=== PATIENT | female | born 1955 | race Caucasian/White ===

== ENCOUNTER 2017-06-19 18:30 | Inpatient (IN) ==
[2017-06-19] MEDS ORDERED: PANTOPRAZOLE 40 MG VIAL IV STA (18:52)
[2017-06-19] MEDS ORDERED: HYDROmorphone 2 MG/1 ML VIAL IV STA (18:52)
[2017-06-19] MEDS ORDERED: ALUM/MAG/SIMETH/LIDO VISC 1:1 30 ML BOTTLE PO STA (18:52)
[2017-06-19] MEDS ORDERED: ONDANSETRON 4 MG/2 ML VIAL IV STA (18:52)
[2017-06-19] MEDS ORDERED: FUROSEMIDE 40 MG/4 ML VIAL IV STA (18:56)
--- NOTE | 2017-06-19 18:57 | Emergency Department Note ---
Raheel Flor Brittany, am scribing for, and in the presence of, Vincenzo Wilson MD 18:52. Steve Flor Charles R, MD, personally performed the services described in this documentation, ascribed by Malini Pickering in my presence, and it is both accurate and complete 856 . Arrival - Arrival Chief Complaint: Abdominal / Flank Pain Stated Complaint: abdominal pain ED Nursing Triage Note: C/o RUQ pain and nausea-onset yesterday. Last BM this morning. Mode of Arrival: Ambulatory Limitations: No Limitations Source: Patient, RN Notes Reviewed - History of Present Illness HPI Narrative: Patient is a 62 y/o white female presenting to the ED with c/o RUQ and mid- epigastric abdominal pain that radiates into the mid-back that began yesterday. Pain is better upon sitting up and leaning forward. Patient reports having some associated diaphoresis and nausea, but denies having any vomiting, diarrhea, or constipation. Last normal bowel movement was this morning. Patient states that she has had a dry, hacking cough. Patient states that she does have a history of IDDM that is well-controlled. Patient reports that she was seen here a few weeks ago s/p being pinned between a lawnmower and tree with c/o chest wall pain and thoracic spine pain. Patient did have radiography studies performed that showed multiple contusions. On monitor patient is hypertensive with a blood pressure of 211/95 mmHg, patient states that she has taken her antihypertensives today. Denies history of Diverticulitis. She denies having any further complaints. PMHx HTN, IDDM, Dyslipidemia, Asthma, Kidney Stones, Recurrent UTI, GI Bleed, Polyps, Cardiac Catheterization, CABG, Tonsillectomy/ Adenoidectomy, Appendectomy, Colonoscopy, Hysterectomy, Ceasarean Section. Onset (ago): day(s) (2) Consistency: constant Date of Last Menstrual Period: hysterectomy Allergies/Adverse Reactions: Allergies Allergy/AdvReac Type Severity Reaction Status Date / Time Sulfa (Sulfonamide Allergy Mild RASH Verified 07/12/15 12:28 Antibiotics) Home Medications: Home Medications Medication Instructions Recorded Confirmed Type Fenofibrate [Tricor] 145 mg PO DAILY 07/12/15 06/19/17 History Rosuvastatin Calcium [Crestor] 40 mg PO BEDTIME 07/12/15 06/19/17 History metFORMIN XR [Glucophage Xr] 500 mg PO 0700,1200 07/12/15 06/19/17 History Atenolol 100 mg PO BEDTIME 07/19/15 06/19/17 History NIFEdipine XL TAB [Procardia Xl] 60 mg PO BEDTIME 07/19/15 06/19/17 History Aspirin [Ecotrin] 325 mg PO DAILY 02/10/16 06/19/17 History Clorazepate [Tranxene] 7.5 mg PO DIRECTED PRN 02/10/16 06/19/17 History Insulin NPH Hum/Reg Insulin Hm 75 units SUBCUT BEDTIME 02/10/16 06/19/17 History [NovoLIN 70/30] Pantoprazole Tab [Protonix Tab] 40 mg PO DAILY 02/10/16 06/19/17 History metFORMIN XR [Glucophage Xr] 1,000 mg PO BEDTIME 03/20/16 06/19/17 History Insulin NPH Hum/Reg Insulin Hm 100 unit SUBCUT AC BREAKFAST 05/15/17 06/19/17 History [NovoLIN 70/30] Levothyroxine Tab [Synthroid Tab] 88 mcg PO DIRECTED 05/15/17 06/19/17 History Nitroglycerin Sl Tab [Nitrostat] 0.4 mg SL Q5M PRN 05/15/17 06/19/17 History Chlorthalidone [Hygroton] 25 mg PO DAILY 06/19/17 06/19/17 History Cilostazol [Pletal] 100 mg PO BID 06/19/17 06/19/17 History Isosorbide Mononitrate [Imdur] 60 mg PO DAILY 06/19/17 06/19/17 History Levothyroxine Tab [Synthroid Tab] 100 mcg PO DIRECTED 06/19/17 06/19/17 History predniSONE TAB [PredniSONE] 10 mg PO QOTHER DAY 06/19/17 06/19/17 History Review of System - Review of System 12 point system: reviewed and no additional remarkable complaints except as stated - Review of System Constitutional: Present: diaphoresis. Absent: chills, fever Respiratory: Absent: respiratory distress Cardiovascular: Absent: chest pain Gastrointestinal: Present: abdominal pain, nausea. Absent: vomiting, diarrhea, constipation Genitourinary female: Absent: dysuria, frequency, urgency Musculoskeletal: Present: back pain. Absent: arm pain, leg pain, neck pain Skin: Absent: rash Neurological: Absent: headache Psychiatric: Absent: anxiety, depression Medical,Surgical,& Family Hx - Medical History Cardio: History of: Hypertension Comment Only: Cardiovascular Problems (TRIPLE BYPASS 2010) Neurology: History of: Migraine No history of: Seizures HEENT: History of: Ear Problem (BILATERAL HEARING AIDS), Eye Problem (READING GLASSES) Endocrine: History of: Diabetes Mellitus (IDDM), Dyslipidemia Respiratory: History of: Asthma Genitourinary: History of: Kidney Stones (20 YRS AGO), Recurring Urinary Tract Infections (ON ANTIBIOTIC 2 WEEKS AGO) Gastrointestinal: History of: Gastrointestinal Bleed (JUL 2014), Polyps (REMOVED ) Hematology: History of: Bleeding Problems (JUL 2014 AFTER POLYP REMOVED DURING C SCOPE) Other: History of: Skin Problems (ULCER RIGHT FOOT), Miscellaneous Medical Problems (SINUS SURGERY) - Surgical History Cardiac Surgeries: Sugical HX of: Cardiac Catheterization, Cardiac Surgery (CABG ) HEENT Surgeries: Surgical HX of: Tonsilectomy & Adenoidectomy Abdominal Surgeries: Surgical HX of: Abdominal Surgery, Appendectomy, Colonoscopy Reproductive Surgeries: Surgical HX of;: Breast Surgery (LEFT BREAST BX), Section (X1), Gynecologic Surgery, Hysterectomy Orthopedic Surgeries: Surgical HX of;: Orthopedic Surgery (LEFT ROTATOR CUFF SX , BILATERAL CARPAL TUNEL SX) - Family History Family History: Reports;: Family Cancer (MOTHER), Family Diabetes (FATHER), Family Heart Disease (FATHER), Family Hypertension (FATHER), Family Stroke ( MOTHER) - Social History Smoking Status: Never smoker Frequency of Alcohol Use: None Type of Drug Use: None Exam Vital Signs: Vital Signs Temperature 96.0 F L 06/19/17 18:52 Pulse Rate 91 H 06/19/17 19:41 Respiratory Rate 12 06/19/17 19:41 Blood Pressure 150/90 06/19/17 19:41 O2 Sat by Pulse Oximetry 98 06/19/17 19:46 - General General appearance: alert, in no apparent distress - Head Head exam: Present: atraumatic, normocephalic - Eye Eye exam: Present: PERRL, EOMI - ENT ENT exam: Present: normal exam, normal oropharynx - Neck Neck exam: Present: normal inspection, full ROM, trachea midline - Chest Chest inspection: Present: normal inspection, symmetric chest wall rise - Respiratory Respiratory exam: Present: rales (rales to bilateral lung bases). Absent: normal lung sounds bilaterally - Cardiovascular Cardiovascular exam: Present: normal rhythm, tachycardia, normal heart sounds. Absent: regular rate - Abdominal Exam Abdominal exam: Present: soft, tenderness (RUQ, mid-epigastric, epigastric), normal bowel sounds - Extremities Exam Extremities exam: Present: pedal edema (+2 edema to bilateral lower extremities) - Back Exam Back exam: Present: normal inspection - Neurological Exam Neurological exam: Present: alert, oriented X3, CN II-XII intact. Absent: motor sensory deficit - Psychiatric Psychiatric exam: Present: normal affect, normal mood - Skin Skin exam: Present: warm, dry, intact, normal color Course - Consultations Consultation #1: Hospitalist will admit patient Time: 19:59 Results - Labs CBC & BMP: 06/19/17 18:49 06/19/17 18:49 Lab Results: I have reviewed the patients labs Labs: Laboratory Tests 06/19/17 06/19/17 18:49 18:49 WBC 10.2 RBC 4.60 Hgb 12.8 Hct 38.1 MCV 82.8 L Plt Count 196 Baso % (Auto) 1.0 H Lymph # (Auto) 4.3 H [place] # (Auto) 1.0 H Sodium 138 Potassium 3.7 Chloride 104 Carbon Dioxide 26 BUN 17 Creatinine 1.00 Glucose 104 Lactic Acid 1.2 Magnesium 1.7 L AST 39 H Alkaline Phosphatase 43 L Troponin I 0.109 H Laboratory Tests 06/19/17 19:41 Urine Color Yellow Urine Appearance Clear Urine pH 7.0 Ur Specific [place] 1.006 Urine Protein Negative Urine Glucose (UA) Negative Urine Ketones Negative Urine Blood Negative Urine Nitrate Negative Urine Bilirubin Negative Urine Urobilinogen < 2.0 H Urine Leukocytes Negative Urine RBC <1 Urine WBC 2 Ur Squamous Epith Cells Occasional Urine Bacteria Occasional Urine Mucus Occasional - Diagnostic Findings Procedure: Abdominal x-ray: report reviewed by me (Cardiomegaly and hepatosplenomegaly.), Chest x-ray: report reviewed by me (Cardiomegaly. No acute abnormality.), CT Abdomen and Pelvis: report reviewed by me (1. Increasing pericardial effusion. 2. Hepatomegaly. Fatty liver. 3. Splenomegaly. 4. No evidence of urinary tract calculi. Hypodensities within the kidneys could be further evaluated with ultrasound. 5. Constipation.) Critical Care Time Critical Care Time: Yes Total Critical Care Time: 60 Disposition Clinical Impression: Abdominal pain, Uncontrolled blood pressure, Pericardial effusion, Epigastric pain, Elevated troponin Case discussed with: patient, patient's family Disposition: Still a Patient Condition: Stable Time of Disposition: 20:01
[2017-06-19 19:00] LABS: Basophils # 0.1 10*3/uL (0.0-0.2); Eosinophils # 0.2 10*3/uL (0.0-0.87); Eosinophils % 2.3 % (0.00-10.9); Hematocrit 38.1 VOL% (35.7-47.0); Hemoglobin 12.8 GM/DL (12.0-16.0); Immature Granulocytes % 0.5 %; Immature Granulocytes Absolute 0.05 #; Lymphocytes # 4.3 10*3/uL (1.4-4.0); Lymphocytes % 41.9 % (21.3-54.2); Mean Corpuscular HGB Conc 33.6 GM/DL (32-36); Mean Corpuscular Hemoglobin 28 PG (27-34); Mean Corpuscular Volume 82.8 FL (87-102); Monocytes % 9.7 % (1.7-12.7); Neutrophils # 4.5 10*3/uL (1.4-7.4); Neutrophils % 44.6 % (38.7-73.9); Platelet Count 196 T/CUMM (130-400); Red Cell Distribution Width 14.1 % (9.3-17.3); White Blood Count 10.2 T/CUMM (4-12)
[2017-06-19] MEDS ORDERED: PANTOPRAZOLE 40 MG VIAL IV ONE (19:04)
[2017-06-19] MEDS ORDERED: FUROSEMIDE 40 MG/4 ML VIAL ONE (19:05)
[2017-06-19] MEDS ORDERED: ONDANSETRON 4 MG/2 ML VIAL ONE (19:05)
[2017-06-19] MEDS ORDERED: ALUM/MAG/SIMETH/LIDO VISC 1:1 30 ML BOTTLE PO ONE (19:06)
[2017-06-19] MEDS ORDERED: HYDROmorphone 2 MG/1 ML VIAL ONE (19:06)
[2017-06-19 19:23] LABS: Lactic Acid 1.2 MMOL/L (0.4-2.0)
--- NOTE | 2017-06-19 19:23 | XRay Report ---
Portable chest. Indication: Chest and abdomen pain. Comparison: May 15, 2017. The heart is enlarged. Post median sternotomy. Normal pulmonary vasculature. Lung looney are clear. Impression: Cardiomegaly. No acute abnormality. PROCEDURE INTERPRETED AT [facility] DEPARTMENT OF RADIOLOGY Final Report Signed by: Dr. Eda Gonzalez
--- NOTE | 2017-06-19 19:23 | XRay Report ---
2 view abdomen. Indication: Abdominal pain. The heart is enlarged. The liver and spleen are enlarged. Surgical clips in the right upper quadrant. Bowel gas pattern is within the range of normal. No evidence of obstruction. Vascular calcifications. Degenerative changes in the lumbar spine. Impression: Cardiomegaly and hepatosplenomegaly. PROCEDURE INTERPRETED AT [facility] DEPARTMENT OF RADIOLOGY Final Report Signed by: Dr. Eda Gonzalez
--- NOTE | 2017-06-19 19:23 | CT Report ---
CT of the abdomen and pelvis without intravenous or oral contrast, renal colic protocol. Indication: Right flank pain. Comparison: CT of the abdomen and pelvis with and without intravenous contrast dated November 14, 2015. The heart is mildly enlarged. There is coronary artery calcification. There is a pericardial effusion, which was present previously but has increased in amount. There is coronary artery calcification. There is mitral calcification. There is no pleural effusion. The lung bases are clear. There is moderately severe plaque present within a normal caliber abdominal aorta, extending into the iliac arteries, femoral arteries, right renal artery, and SMA. There is calcification present within the splenic artery. The liver is enlarged with a length of 24 cm. There is fatty infiltration of the liver. No focal liver lesions are identified. There is no intrahepatic biliary ductal dilatation. The spleen is enlarged with a splenic index of 975. There is no adrenal enlargement. There is no pancreatic enlargement. The gallbladder has been removed. The kidneys are lobular, and vague hypodensities are suspected. There is a small amount of parenchymal calcification on the left, likely associated with the cyst. No nephrolithiasis. No hydronephrosis. No ureteral calculi. The urinary bladder presents a normal appearance. The pelvic organs have been removed. The gastric contour is grossly normal. The loops of small intestine are not dilated. The terminal ileum presents a normal appearance. The appendix is not discretely seen. There are no inflammatory changes noted within the right lower quadrant. The colon is redundant and moderately distended with fecal material. No evidence of obstruction. Scattered diverticuli without findings to suggest diverticulitis. No colonic wall thickening is seen. Degenerative changes are noted within the spinal column. Impression: 1. Increasing pericardial effusion. 2. Hepatomegaly. Fatty liver. 3. Splenomegaly. 4. No evidence of urinary tract calculi. Hypodensities within the kidneys could be further evaluated with ultrasound. 5. Constipation. The CT exam was performed using one or more of the following dose reduction techniques: Automated exposure control, adjustment of the mA and/or kV according to patient size, or use of iterative reconstruction technique. PROCEDURE INTERPRETED AT [facility] DEPARTMENT OF RADIOLOGY Final Report Signed by: Dr. Eda Gonzalez
[2017-06-19 19:24] LABS: Albumin 3.8 G/DL (3.4-5.0); Bilirubin,Total 0.5 MG/DL (0.2-1.0); Calcium 8.9 MG/DL (8.5-10.1); Magnesium 1.7 MG/DL (1.8-2.4); Osmolality,Calculated 276.7 MOS/KG (273-304); Potassium 3.7 MMOL/L (3.5-5.1); Total Protein 7.2 G/DL (6.4-8.3)
[2017-06-19 19:25] LABS: Troponin I Only 0.109 NG/ML (0.00-0.045)
[2017-06-19] MEDS ORDERED: MAGNESIUM SULF RIDER 2 GM in PREMIX 1 EACH IV STA (19:45)
[2017-06-19 19:53] LABS: Apearance,Urine CLEAR (Clear); Bacteria,Urine Occasional /HPF (Few); Bilirubin,Urine Negative (Negative); Blood, Urine Negative (Negative); Glucose,Urine (UA) Negative (Negative); Ketones,Urine Negative (Negative); Mucus,Urine Occasional /LPF (Occasional); Nitrite,Urine Negative (Negative); Protein,Urine Negative; RBC,Urine <1 /HPF (0-4); Squamous Epithelial Cell,Urine Occasional /HPF (0-10); Urine Color Yellow (Yellow); Urine Specific Gravity 1.006 (1.001-1.035); Urine Urobilinogen < 2.0 EU/DL (0.2-1.0); WBC,Urine 2 /HPF (0-6)
[2017-06-19] MEDS ORDERED: MAGNESIUM SULF RIDER 50 ML IV ONE (19:53)
--- NOTE | 2017-06-19 19:54 | EKG Report ---
Stationary ECG Study [facility] ER Test Date: 06/19/2017 7:52:25 PM Pat Name: SYDNEE WARREN Department: Room: Gender: F Files Supervisor: : 1955 Requested by: Vincenzo Morrison Order Number: [id number] Reading MD: SATHYA BAEZ Intervals [place] Rate: 83 P: 41 MT: 189 QRS: 74 QRSD: 116 T: -4 QT: 406 QTc: 445 Interpretive Statements SINUS RHYTHM WITH FREQUENT VENTRICULAR PREMATURE COMPLEXES MODERATE INTRAVENTRICULAR CONDUCTION DELAY Nonspecific repol abnorm Electronically Signed On 06-19-17 21:48:52 CDT by SATHYA BAEZ [id number]
[2017-06-19] MEDS ORDERED: GLUCAGON 1 MG VIAL IM PRN (20:19)
[2017-06-19] MEDS ORDERED: DOCUSATE SODIUM 100 MG CAPSULE PO PRN (20:19)
[2017-06-19] MEDS ORDERED: DEXTROSE 50% 25 GM/50 ML SYRINGE IV PRN (20:19)
[2017-06-19] MEDS ORDERED: ACETAMINOPHEN 325 MG TABLET PO PRN (20:19)
[2017-06-19] MEDS ORDERED: ONDANSETRON 4 MG/2 ML VIAL IV PRN (20:19)
[2017-06-19] MEDS ORDERED: ZALEPLON 5 MG CAPSULE PO PRN (20:19)
[2017-06-19] MEDS ORDERED: NITROGLYCERIN SL 0.4 MG TABLET SL PRN (20:21)
[2017-06-19] MEDS ORDERED: CLORAZEPATE 7.5 MG TABLET PO PRN (20:21)
[2017-06-19] MEDS ORDERED: hydrALAZINE 20 MG/1 ML VIAL IV PRN (20:23)
--- NOTE | 2017-06-19 20:30 | Hospitalist History & Physical ---
Assessment and Plan - Time spent with patient Time spent with patient: Greater than 30 minutes (1) Pericardial effusion Status: Acute Assessment and plan: CT of the chest is pending. Consider echocardiogram. Consult cardiology. Repeat cardiac enzymes. Current Visit: Yes (2) Elevated troponin Status: Acute Assessment and plan: Repeat cardiac enzymes. No evidence of ST elevation or acute chest pain to suggest acute coronary syndrome. Current Visit: Yes (3) Epigastric pain Status: Resolved Assessment and plan: This improved with a GI cocktail and Dilaudid as well as Protonix and Zofran. Continue to monitor. Repeat lipase in a.m. Current Visit: Yes (4) DM2 (diabetes mellitus, type 2) Status: Chronic Assessment and plan: Continue home medications as well as Accu-Cheks and sliding scale insulin. Current Visit: Yes Qualifiers: Diabetes mellitus complication status: with neurologic complications Diabetes mellitus complication detail: with unspecified neuropathy Diabetes mellitus skilled nursing insulin use: with skilled nursing use Qualified Code(s): E11.40 - Type 2 diabetes mellitus with diabetic neuropathy, unspecified; Z79.4 - terminal gauger (current) use of insulin (5) HTN (hypertension) Status: Chronic Assessment and plan: Continue home medications and use IV hydralazine as needed for elevated blood pressures. The patient was found to be acutely hypertensive with uncontrolled hypertension on admission. Current Visit: Yes Qualifiers: Hypertension type: essential hypertension Qualified Code(s): I10 - Essential (primary) hypertension (6) Hyperlipidemia Status: Chronic Current Visit: Yes Qualifiers: Hyperlipidemia type: unspecified Qualified Code(s): E78.5 - Hyperlipidemia , unspecified (7) Abdominal pain Status: Resolved Current Visit: Yes Qualifiers: Abdominal location: epigastric Qualified Code(s): R10.13 - Epigastric pain History of Present Illness Chief complaint: epigastric abdominal pain History of present illness: Ms. Pickens is a 62 year old female with a history of hypertension, diabetes, hyperlipidemia, hypothyroidism, coronary artery disease status post CABG. She presented to the emergency department tonight with right upper quadrant and epigastric abdominal pain that began yesterday. The pain has been ongoing for approximately 24 hours and has worsened. It is associated with nausea and chills with no fever. She denies any aggravating or alleviating factors. She was concerned about the diagnosis of pancreatitis. She has had a cholecystectomy approximately one half years ago. She had an incident on her lawnmower approximately 3-4 weeks ago where she was pinned by a branch and the controls of a lawnmower in the right upper quadrant and right rib area. She was seen in the emergency department thereafter and had an x-ray. She was also seen by her primary care physician's office and had a CT of the chest which was unremarkable except for pericardial effusion. Today on evaluation in the emergency department she was found to have a mildly elevated troponin with an increasing pericardial effusion on CT of the abdomen and pelvis. A chest CT is currently pending. In the emergency department she received Dilaudid as well as a GI cocktail and Protonix and Zofran. She reports relief of her epigastric and right upper quadrant abdominal pain. She also reported a headache with her symptoms that has also resolved. I was consulted by the emergency room physician to admit the patient to the hospital for further evaluation workup of her mild elevation in troponin and increasing pericardial effusion over the last 3 weeks. Further recommendations will depend on her response to therapy. CT of the chest is currently pending for further evaluation of her chest and pericardial effusion. Of note, the patient's blood pressure was markedly elevated with a systolic blood pressure of 207 and a diastolic greater than 100 on presentation to the emergency department. This has improved with medications and a dose of hydralazine IV has been ordered. The patient's home medications were reviewed and reconciled. Her was at the bedside and is her primary healthcare proxy and decision maker. The patient is a full code. Primary care physician Dr. Lama. Squeak Rattle And Leak Repairer Dr. Coles. Gastroneurologist Dr. Quintero. Home Medications Medication Instructions Recorded Confirmed Type Fenofibrate [Tricor] 145 mg PO BEDTIME 07/12/15 06/19/17 History Rosuvastatin Calcium [Crestor] 40 mg PO BEDTIME 07/12/15 06/19/17 History metFORMIN XR [Glucophage Xr] 500 mg PO BID@0700,1200 07/12/15 06/19/17 History Atenolol 100 mg PO BEDTIME 07/19/15 06/19/17 History NIFEdipine XL TAB [Procardia Xl] 60 mg PO BEDTIME 07/19/15 06/19/17 History Aspirin [Ecotrin] 325 mg PO BEDTIME 02/10/16 06/19/17 History Clorazepate [Tranxene] 7.5 mg PO DAILY PRN 02/10/16 06/19/17 History Insulin NPH Hum/Reg Insulin Hm 75 units SUBCUT BEDTIME 02/10/16 06/19/17 History [NovoLIN 70/30] Pantoprazole Tab [Protonix Tab] 40 mg PO BEDTIME 02/10/16 06/19/17 History metFORMIN XR [Glucophage Xr] 1,000 mg PO BEDTIME 03/20/16 06/19/17 History Insulin NPH Hum/Reg Insulin Hm 100 unit SUBCUT AC BREAKFAST 05/15/17 06/19/17 History [NovoLIN 70/30] Levothyroxine Tab [Synthroid Tab] 88 mcg PO SUTUTHSA 05/15/17 06/19/17 History Nitroglycerin Sl Tab [Nitrostat] 0.4 mg SL Q5M PRN 05/15/17 06/19/17 History Chlorthalidone [Hygroton] 25 mg PO DAILY 06/19/17 06/19/17 History Cilostazol [Pletal] 100 mg PO BID 06/19/17 06/19/17 History Isosorbide Mononitrate [Imdur] 60 mg PO BEDTIME 06/19/17 06/19/17 History Levothyroxine Tab [Synthroid Tab] 100 mcg PO MOWEFR 06/19/17 06/19/17 History predniSONE TAB [PredniSONE] 10 mg PO QOTHER DAY 06/19/17 06/19/17 History Allergies Allergy/AdvReac Type Severity Reaction Status Date / Time Sulfa (Sulfonamide Allergy Mild RASH Verified 07/12/15 12:28 Antibiotics) Medical,Surgical,& Family Hx - Medical History Cardio: History of: Hypertension Comment Only: Cardiovascular Problems (TRIPLE BYPASS 2010) Neurology: History of: Migraine No history of: Seizures HEENT: History of: Ear Problem (BILATERAL HEARING AIDS), Eye Problem (READING GLASSES) Endocrine: History of: Diabetes Mellitus (IDDM), Dyslipidemia, Thyroid Disorder Respiratory: History of: Asthma, Bronchitis Genitourinary: History of: Kidney Stones (20 YRS AGO), Recurring Urinary Tract Infections (ON ANTIBIOTIC 2 WEEKS AGO) Gastrointestinal: History of: Gastrointestinal Bleed (JUL 2014), Polyps (REMOVED ) Hematology: History of: Bleeding Problems (JUL 2014 AFTER POLYP REMOVED DURING C SCOPE) Other: History of: Skin Problems (ULCER RIGHT FOOT), Miscellaneous Medical Problems (SINUS SURGERY) - Surgical History Cardiac Surgeries: Sugical HX of: Cardiac Catheterization, Cardiac Surgery (CABG ) HEENT Surgeries: Surgical HX of: Tonsilectomy & Adenoidectomy Abdominal Surgeries: Surgical HX of: Abdominal Surgery, Appendectomy, Colonoscopy Reproductive Surgeries: Surgical HX of;: Breast Surgery (LEFT BREAST BX), Section (X1), Gynecologic Surgery, Hysterectomy Orthopedic Surgeries: Surgical HX of;: Orthopedic Surgery (LEFT ROTATOR CUFF SX , BILATERAL CARPAL TUNEL SX) - Family History Family History: Reports;: Family Cancer (MOTHER), Family Diabetes (FATHER), Family Heart Disease (FATHER), Family Hypertension (FATHER), Family Stroke ( MOTHER) - Social History Smoking Status: Never smoker Have you smoked in the last 12 months: No Frequency of Alcohol Use: None Type of Drug Use: None Marital Status: Lives With:: Spouse Functional capacity: independent ambulation 12 point system: reviewed and no additional remarkable complaints except as stated Exam - Constitutional Vitals: Period Temp Pulse Resp BP Sys/Handy Pulse Ox Last 24 Hr 96.0 F-96.0 F 82-104 12-18 150-207/83-90 96-98 Exam: Constitutional System: No distress. No tremulousness. Head: Normocephalic, atraumatic. Ears, Nose and Throat System: No pain or tenderness. No epistaxis or discharge Eyes System: Pupils equal, round, and reactive. Extraocular muscles intact. Neck: Supple, without adenopathy, No jugular venous distention. No thyromegaly, neck mass, or prior surgery apparent. Respiratory System: Chest clear to auscultation. Right chest wall is tender to palpation. No bruising or ecchymosis. Cardiovascular System: Heart with regular rate and rhythm. No murmur. GI System: Abdomen soft, nontender. Normo active bowel sounds present. Musculoskeletal System: limbs with mild pitting bilateral pedal edema. Full distal pulses. Normal capillary refill. Neurological System: No discernable sensory deficit. No aphasia. Decreased sensation in the feet as a consequence of long-term diabetes. Psychiatric System: Conversation is rational Results - Labs CBC & BMP: 06/19/17 18:49 06/19/17 18:49 Lab Results: I have reviewed the past 24 hour labs - Diagnostic Findings Procedure: Chest x-ray: report reviewed by me, image reviewed by me, CT Abdomen and Pelvis: report reviewed by me, image reviewed by me, CT - chest: pending
--- NOTE | 2017-06-19 20:47 | CT Report ---
CT of the chest with intravenous contrast, PE protocol. Axial images were obtained with sagittal and coronal 2-D and 3-D reconstructions. Comparison is made with a recent previous noncontrasted study of May 28, 2017. Indication: Shortness of breath. 100 cc Omni 350. The thyroid gland is normal in size. There is no supraclavicular or axillary lymphadenopathy. The heart is enlarged. There is a pericardial effusion, which is increased in prominence since the previous exam. It has a maximum thickness of 17 mm. There is coronary artery calcification. There is no pleural effusion. There is no evidence of pulmonary thromboembolism. There is at the sclerotic plaque within a normal caliber thoracic aorta. There is mild interstitial prominence throughout the lung looney. No consolidation or pleural effusion. Post median sternotomy. Degenerative changes in the spinal column. Impression: Increasing pericardial effusion. Atherosclerotic disease. No evidence of pulmonary thromboembolism. The CT exam was performed using one or more of the following dose reduction techniques: Automated exposure control, adjustment of the mA and/or kV according to patient size, or use of iterative reconstruction technique. PROCEDURE INTERPRETED AT [facility] DEPARTMENT OF RADIOLOGY Final Report Signed by: Dr. Eda Gonzalez
[2017-06-19] MEDS: ISOSORBIDE MONONITRATE 60 MG TABLET PO SCH (21:42)
[2017-06-19] MEDS: ENOXAPARIN 40 MG/0.4 ML SYRINGE SUBCUT SCH (21:42)
[2017-06-19] MEDS: ASPIRIN EC 325 MG TABLET PO SCH (21:42)
[2017-06-19] MEDS: CILOSTAZOL 100 MG TABLET PO SCH (21:42)
[2017-06-19] MEDS: FENOFIBRATE 145 MG TABLET PO SCH (21:42)
[2017-06-19] MEDS: ATENOLOL 100 MG TABLET PO SCH (21:42)
[2017-06-19] MEDS: PANTOPRAZOLE 40 MG TABLET PO SCH (21:43)
[2017-06-19] MEDS: INSULIN LISPRO 100 UNIT/ML SUBCUT SCH (21:45)
[2017-06-19] MEDS: INSULIN NPH/REGULAR 70/30 100 UNIT/ML SUBCUT SCH (21:45)
[2017-06-19] MEDS: ROSUVASTATIN 20 MG TABLET PO SCH (21:46)
[2017-06-19 23:26] LABS: Troponin I Only 0.098 NG/ML (0.00-0.045)
[2017-06-20 05:26] LABS: Troponin I Only 0.107 NG/ML (0.00-0.045)
[2017-06-20 05:32] LABS: Albumin 3.5 G/DL (3.4-5.0); Bilirubin,Total 0.4 MG/DL (0.2-1.0); Calcium 9.1 MG/DL (8.5-10.1); Magnesium 2.2 MG/DL (1.8-2.4); Osmolality,Calculated 278.5 MOS/KG (273-304); Potassium 3.9 MMOL/L (3.5-5.1); Risk Ratio 6.48; Thyroid Stimulating Hormone 5.99 uIU/ml (0.358-3.74); Total Protein 6.3 G/DL (6.4-8.3); VLDL CHOLESTEROL 101.8 MG/DL
[2017-06-20] MEDS ORDERED: LEVOTHYROXINE 88 MCG TABLET PO SCH (07:00)
--- NOTE | 2017-06-20 07:54 | EKG Report ---
Stationary ECG Study [facility] Test Date: 06/20/2017 7:52:53 AM Pat Name: SYDNEE WARREN Department: Room: 294 Gender: F Foot Tender: MANJEET : 1955 Requested by: Summer Murdock Order Number: [id number] Reading MD: SATHYA BAEZ Intervals [place] Rate: 64 P: 31 [place]: 172 QRS: 106 QRSD: 114 T: -16 QT: 457 QTc: 466 Interpretive Statements SINUS RHYTHM MARKED RIGHT AXIS DEVIATION INCOMPLETE RIGHT BUNDLE BRANCH BLOCK Electronically Signed On 06-20-17 18:03:10 CDT by SATHYA BAEZ [id number]
[2017-06-20] MEDS: CILOSTAZOL 100 MG TABLET PO SCH ×2 (09:12→21:05)
[2017-06-20] MEDS: CHLORTHALIDONE 25 MG TABLET PO SCH (09:12)
[2017-06-20] MEDS: PANTOPRAZOLE 40 MG TABLET PO SCH ×2 (09:12→21:05)
[2017-06-20] MEDS: INSULIN LISPRO 100 UNIT/ML SUBCUT SCH ×4 (09:13→21:09)
[2017-06-20] MEDS: INSULIN NPH/REGULAR 70/30 100 UNIT/ML SUBCUT SCH ×2 (09:14→21:05)
[2017-06-20 09:58] LABS: Troponin I Only 0.106 NG/ML (0.00-0.045)
--- NOTE | 2017-06-20 13:57 | ECHO Report ---
Camila Picknes Exam Date: 06/20/2017 10:52 Referring Physician: Technologist: chriss Musa ARDMS, RVT Age: 62 Ht (in): 68 Wt (lb): 242 Gender: F Exam Location: [facility] Echo Indications: Essential (primary) hypertension, Epigastric pain, Pericardial effusion, Elevated troponin, Hyperlipidemia, DM, S/P CABG BP: 170 / 76 HR: 69 Rhythm: Sinus Technical Quality: IMPRESSIONS Normal left ventricular size, with mild concentric hypertrophy. The posterior segments are dyskinetic, the remaining segments have normal systolic function. Estimated left ventricular ejection fraction is 50%. Grade 3 diastolic dysfunction. Mild left atrial enlargement. The mitral valve is thickened, with a mild mitral annular calcification. Mild mitral insufficiency, no stenosis. Aortic valve sclerosis, without stenosis, with trace insufficiency. Small posterior pericardial effusion. Mild pulmonic valve insufficiency MEASUREMENTS (Male / Female) Normal Values 2D ECHO LV Diastolic Diameter PLAX 4.4 cm 4.2 - 5.9 / 3.9 - 5.3 cm LV Systolic Diameter PLAX 3.4 cm LV Fractional Shortening PLAX 23.4 % IVS Diastolic Thickness 1.4 cm 0.6 - 1.0 / 0.6 - 0.9 cm LVPW Diastolic Thickness 1.2 cm 0.6 - 1.0 / 0.6 - 0.9 cm RV Internal Dim ED PLAX 3.5 cm Aortic Root Diameter 2.8 cm LA Systolic Diameter LX 4.0 cm 3.0 - 4.0 / 2.7 - 3.8 cm DOPPLER TR Peak Velocity 224.0 cm/s TR Peak Gradient 20.1 mmHg FINDINGS Left Ventricle Normal left ventricular size, with mild concentric hypertrophy. The posterior segments are dyskinetic, the remaining segments have normal systolic function. Estimated left ventricular ejection fraction is 50%. Grade 3 diastolic dysfunction. Right Ventricle The right ventricle is normal in size and function. Right Atrium The right atrium is normal in size. Left Atrium The left atrium is mildly enlarged. Mitral Valve The mitral valve is thickened, with a mild mitral annular calcification. Mild mitral insufficiency, no stenosis. Aortic Valve Aortic valve sclerosis, without stenosis, with trace insufficiency. Tricuspid Valve Morphologically normal tricuspid valve. Mild tricuspid valve regurgitation. Tricuspid regurgitation velocities suggest a PAP of 30 mmHg. Pulmonic Valve Morphologically normal pulmonic valve. Mild pulmonary valve regurgitation. Pericardium Small posterior pericardial effusion. Aorta Normal aortic root size Js Dooley (Electronically Signed) Final Date: 20 June 2017 13:56
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
[2017-06-20] MEDS: LOSARTAN 50 MG TABLET PO SCH (16:31)
--- NOTE | 2017-06-20 18:37 | General Surgery Consult Note ---
Assessment and Plan (1) Rib fractures Status: Acute Assessment and plan: This patient has healing rib fractures of her right chest wall. This will not require any further workup or treatment. The fractures are healing. No other treatment recommended. In regards to the patient's pericardial effusion this appears to be a chronic finding and not related to trauma. Her hepatosplenomegaly is likely medical and there is no trauma to her spleen or liver. I will defer the further workup and management of this to the medical team. Please call back with further questions. Current Visit: Yes History of Present Illness Chief complaint: Right chest wall pain and right upper abdominal pain History of present illness: Ms. Pickens is a 62 year old female who is in an accident 3 weeks ago with a lawnmower and came in through the ER yesterday with chest wall pain. She had CT scans of her chest and abdomen and has healing rib fractures are not the 10th ribs. I was asked to see her for consultation. She also has hepatosplenomegaly for unknown reason. She had a pericardial effusion on CT that was re-evaluated on echocardiogram and was not hemodynamically significant. Home Medications Medication Instructions Recorded Confirmed Type Fenofibrate [Tricor] 145 mg PO BEDTIME 07/12/15 06/19/17 History Rosuvastatin Calcium [Crestor] 40 mg PO BEDTIME 07/12/15 06/19/17 History metFORMIN XR [Glucophage Xr] 500 mg PO BID@0700,1200 07/12/15 06/19/17 History Atenolol 100 mg PO BEDTIME 07/19/15 06/19/17 History NIFEdipine XL TAB [Procardia Xl] 60 mg PO BEDTIME 07/19/15 06/19/17 History Aspirin [Ecotrin] 325 mg PO BEDTIME 02/10/16 06/19/17 History Clorazepate [Tranxene] 7.5 mg PO DAILY PRN 02/10/16 06/19/17 History Insulin NPH Hum/Reg Insulin Hm 75 units SUBCUT BEDTIME 02/10/16 06/19/17 History [NovoLIN 70/30] Pantoprazole Tab [Protonix Tab] 40 mg PO BEDTIME 02/10/16 06/19/17 History metFORMIN XR [Glucophage Xr] 1,000 mg PO BEDTIME 03/20/16 06/19/17 History Insulin NPH Hum/Reg Insulin Hm 100 unit SUBCUT AC BREAKFAST 05/15/17 06/19/17 History [NovoLIN 70/30] Levothyroxine Tab [Synthroid Tab] 88 mcg PO SUTUTHSA 05/15/17 06/19/17 History Nitroglycerin Sl Tab [Nitrostat] 0.4 mg SL Q5M PRN 05/15/17 06/19/17 History Chlorthalidone [Hygroton] 25 mg PO DAILY 06/19/17 06/19/17 History Cilostazol [Pletal] 100 mg PO BID 06/19/17 06/19/17 History Isosorbide Mononitrate [Imdur] 60 mg PO BEDTIME 06/19/17 06/19/17 History Levothyroxine Tab [Synthroid Tab] 100 mcg PO MOWEFR 06/19/17 06/19/17 History predniSONE TAB [PredniSONE] 10 mg PO QOTHER DAY 06/19/17 06/19/17 History Allergies Allergy/AdvReac Type Severity Reaction Status Date / Time Sulfa (Sulfonamide Allergy Mild RASH Verified 07/12/15 12:28 Antibiotics) Medical,Surgical,& Family Hx - Medical History Cardio: History of: Hypertension Comment Only: Cardiovascular Problems (TRIPLE BYPASS 2010) Neurology: History of: Migraine No history of: Seizures HEENT: History of: Ear Problem (BILATERAL HEARING AIDS), Eye Problem (READING GLASSES) Endocrine: History of: Diabetes Mellitus (IDDM), Dyslipidemia, Thyroid Disorder Respiratory: History of: Asthma, Bronchitis Genitourinary: History of: Kidney Stones (20 YRS AGO), Recurring Urinary Tract Infections (ON ANTIBIOTIC 2 WEEKS AGO) Gastrointestinal: History of: Gastrointestinal Bleed (JUL 2014), Polyps (REMOVED ) Hematology: History of: Bleeding Problems (JUL 2014 AFTER POLYP REMOVED DURING C SCOPE) Other: History of: Skin Problems (ULCER RIGHT FOOT), Miscellaneous Medical Problems (SINUS SURGERY) - Surgical History Cardiac Surgeries: Sugical HX of: Cardiac Catheterization, Cardiac Surgery (CABG ) HEENT Surgeries: Surgical HX of: Tonsilectomy & Adenoidectomy Abdominal Surgeries: Surgical HX of: Abdominal Surgery, Appendectomy, Colonoscopy Reproductive Surgeries: Surgical HX of;: Breast Surgery (LEFT BREAST BX), Section (X1), Gynecologic Surgery, Hysterectomy Orthopedic Surgeries: Surgical HX of;: Orthopedic Surgery (LEFT ROTATOR CUFF SX , BILATERAL CARPAL TUNEL SX) - Family History Family History: Reports;: Family Cancer (MOTHER), Family Diabetes (FATHER), Family Heart Disease (FATHER), Family Hypertension (FATHER), Family Stroke ( MOTHER) - Social History Smoking Status: Never smoker Frequency of Alcohol Use: None Type of Drug Use: None - Constitutional Constitutional: Present: as per HPI - EENT Nose, mouth and throat: Present: as per HPI - Cardiovascular Cardiovascular: Present: as per HPI - Respiratory Respiratory: Present: as per HPI - Gastrointestinal Gastrointestinal: Present: as per HPI - Genitourinary Genitourinary: Present: as per HPI - Musculoskeletal Musculoskeletal: Present: as per HPI - Neurological Neurological: Present: as per HPI - Endocrine Endocrine: Present: as per HPI Hematologic/Lymphatic: Present: as per HPI Exam - Constitutional Vitals: Period Temp Pulse Resp BP Sys/Handy Pulse Ox Last 24 Hr 96.0 F-98 F 68-91 12-20 138-207/56-90 93-99 General appearance: no acute distress, over weight - Head Head exam: Present: normal inspection, normocephalic - Eye Eye exam: Present: EOMI Pupils: Present: RANDY - ENT ENT exam: Present: normal exam Mouth exam: Present: normal external inspection, normal voice - Neck Neck exam: Present: normal inspection, trachea midline - Respiratory Respiratory exam: Present: clear to auscultation bilaterally, chest wall tenderness (Chest wall tenderness and right anterior costal margin). Absent: accessory muscle use - Cardiovascular Cardiovascular exam: Present: RRR. Absent: systolic murmur, tachycardia - GI/Abdominal GI/Abdominal exam: Present: tenderness (There is chest wall and abdominal wall tenderness to palpation in the right upper costal margin region.), soft. Absent : rebound - Extremities Exam Extremities exam: Present: normal inspection - Back Exam Back exam: Present: normal inspection - Neurological Exam Neurological exam: Present: alert, oriented X3 Speech: Present: normal - Skin Skin exam: Present: normal color, warm Results - Labs CBC & BMP: 06/19/17 18:49 06/20/17 04:18 - Diagnostic Findings Procedure: CT Abdomen and Pelvis: image reviewed by me, report reviewed by me, CT - chest: image reviewed by me, report reviewed by me, X-ray: image reviewed by me, report reviewed by me (Anterior ninth and 10th rib fractures)
[2017-06-20] MEDS: ASPIRIN EC 325 MG TABLET PO SCH (21:04)
[2017-06-20] MEDS: FENOFIBRATE 145 MG TABLET PO SCH (21:04)
[2017-06-20] MEDS: ISOSORBIDE MONONITRATE 60 MG TABLET PO SCH (21:04)
[2017-06-20] MEDS: ROSUVASTATIN 20 MG TABLET PO SCH (21:04)
[2017-06-20] MEDS: ENOXAPARIN 40 MG/0.4 ML SYRINGE SUBCUT SCH (21:05)
[2017-06-20] MEDS: ATENOLOL 100 MG TABLET PO SCH (21:05)
[2017-06-21 06:07] LABS: Basophils # 0.1 10*3/uL (0.0-0.2); Basophils % 0.9 % (0.0-0.8); Eosinophils # 0.2 10*3/uL (0.0-0.87); Eosinophils % 2.7 % (0.00-10.9); Hematocrit 35.8 VOL% (35.7-47.0); Hemoglobin 11.9 GM/DL (12.0-16.0); Immature Granulocytes % 0.6 %; Immature Granulocytes Absolute 0.05 #; Lymphocytes % 44.5 % (21.3-54.2); Mean Corpuscular HGB Conc 33.2 GM/DL (32-36); Mean Corpuscular Hemoglobin 28 PG (27-34); Mean Corpuscular Volume 83.3 FL (87-102); Mean Platelet Volume 12.7 FL (9.6-12.0); Monocytes # 0.9 10*3/uL (0.11-0.8); Monocytes % 9.9 % (1.7-12.7); Neutrophils # 3.8 10*3/uL (1.4-7.4); Neutrophils % 41.4 % (38.7-73.9); Platelet Count 190 T/CUMM (130-400); Red Cell Distribution Width 14.1 % (9.3-17.3)
[2017-06-21] MEDS ORDERED: LEVOTHYROXINE 100 MCG TABLET PO SCH (07:00)
[2017-06-21] MEDS: INSULIN LISPRO 100 UNIT/ML SUBCUT SCH ×2 (08:26→12:34)
[2017-06-21] MEDS ORDERED: predniSONE 10 MG TABLET PO SCH (09:00)
[2017-06-21] MEDS ORDERED: FUROSEMIDE 20 MG TABLET PO SCH (09:00)
[2017-06-21] MEDS: CILOSTAZOL 100 MG TABLET PO SCH (09:19)
[2017-06-21] MEDS: CHLORTHALIDONE 25 MG TABLET PO SCH (09:20)
[2017-06-21] MEDS: PANTOPRAZOLE 40 MG TABLET PO SCH (09:20)
[2017-06-21] MEDS: LOSARTAN 50 MG TABLET PO SCH (09:20)
[2017-06-21] MEDS: INSULIN NPH/REGULAR 70/30 100 UNIT/ML SUBCUT SCH (09:34)
[2017-06-21 16:15] VITALS: BP 132/59
--- NOTE | 2017-06-21 16:31 | Discharge Summary ---
Hospital Course - Hospital Course Hospital Course: The patient was admitted to the hospital with right-sided chest pain radiating to the left. Mrs. Camila Pickens has underlying coronary disease and sees Dr. Lilian Coles as an outpatient. The patient had observation on telemetry monitoring and cardiology consultation with Dr. Leija. The patient's cardiac biomarkers were mildly elevated at 0.1 but did not have any rise or fall which leads us to believe this is her baseline. The patient did have trauma evaluation by Dr. easno who did not feel that she needed any further therapy. The patient does have small pericardial effusion which was seen on ultrasound and appears to be unchanged. The patient will follow up with Dr. Coles for further follow up of coronary disease as required. On the date of discharge, chest is clear and abdomen soft. Heart has regular rate and rhythm. Patient medications were reconciled upon admission, and again at the time of discharge. The patient was screened for tobacco use and found to be a never smoker. The patient's medical decsion maker is themself, and when asked, they asked to be Full code. Discharge Time was 32 minutes, including final examination, evaluation and planning, education, reconciliation of medications, writing prescriptions, coordinating care with family preservation caseworker, and preparing discharge documentation. - Time spent with patient Time with patient DS: Greater than 30 minutes Diagnosis - Discharge Diagnosis (1) Rib fractures Status: Resolved (2) CAD (coronary artery disease) Status: Chronic Discharge Plan - Discharge Data Disposition: Disch To Home/Self Care Condition at Discharge: Stable Discharge Diet: diabetic diet Activity: resume usual activities as tolerated - Discharge Medications Continue Rosuvastatin Calcium [Crestor] 40 mg PO BEDTIME Fenofibrate [Tricor] 145 mg PO BEDTIME metFORMIN XR [Glucophage Xr] 500 mg PO BID@0700,1200 NIFEdipine XL TAB [Procardia Xl] 60 mg PO BEDTIME Atenolol 100 mg PO BEDTIME Pantoprazole Tab [Protonix Tab] 40 mg PO BEDTIME Aspirin [Ecotrin] 325 mg PO BEDTIME Insulin NPH Hum/Reg Insulin Hm [NovoLIN 70/30] 75 units SUBCUT BEDTIME Clorazepate [Tranxene] 7.5 mg PO DAILY PRN PRN Reason: Anxiety metFORMIN XR [Glucophage Xr] 1,000 mg PO BEDTIME Nitroglycerin Sl Tab [Nitrostat] 0.4 mg SL Q5M PRN PRN Reason: Chest Pain Insulin NPH Hum/Reg Insulin Hm [NovoLIN 70/30] 100 unit SUBCUT AC BREAKFAST Levothyroxine Tab [Synthroid Tab] 100 mcg PO MOWEFR Cilostazol [Pletal] 100 mg PO BID Levothyroxine Tab [Synthroid Tab] 88 mcg PO SUTUTHSA Isosorbide Mononitrate [Imdur] 60 mg PO BEDTIME predniSONE TAB [PredniSONE] 10 mg PO QOTHER DAY Chlorthalidone [Hygroton] 25 mg PO DAILY - Follow Up or Referral Follow Up: Lilian Kirkpatrick DO [Physician] - 1 Month - Forms/Instructions Exam - Constitutional Vitals: Period Temp Pulse Resp BP Sys/Handy Pulse Ox Last 24 Hr 96.7 F-99 F 67-86 18-20 106-155/56-74 90-98 Discharge Results Procedures and tests throughout hospitalization: Pending Orders 06/22/17 04:00 CBC [Comp Blood Count Auto Diff] IN AM 06/23/17 04:00 CBC [Comp Blood Count Auto Diff] IN AM Labs on day of discharge: Labs from last 24 hours 06/21/17 06/21/17 06/21/17 15:43 11:39 08:12 WBC RBC Hgb Hct MCV MCH MCHC RDW Plt Count MPV Neut % (Auto) Lymph % (Auto) [place] % (Auto) Eos % (Auto) Baso % (Auto) Neut # (Auto) Lymph # (Auto) [place] # (Auto) Eos # (Auto) Baso # (Auto) Immature Gran % Nucleated RBC % Immature Gran # Nucleated RBCs # Immature Plt Fraction POC Glucose 225 H 249 H 144 H 06/21/17 06/20/17 06/20/17 04:32 20:35 16:09 WBC 9.0 RBC 4.30 Hgb 11.9 L Hct 35.8 MCV 83.3 L MCH 28 MCHC 33.2 RDW 14.1 Plt Count 190 MPV 12.7 H Neut % (Auto) 41.4 Lymph % (Auto) 44.5 [place] % (Auto) 9.9 Eos % (Auto) 2.7 Baso % (Auto) 0.9 H Neut # (Auto) 3.8 Lymph # (Auto) 4.0 [place] # (Auto) 0.9 H Eos # (Auto) 0.2 Baso # (Auto) 0.1 Immature Gran % 0.6 Nucleated RBC % 0.0 Immature Gran # 0.05 Nucleated RBCs # 0.00 Immature Plt Fraction 0.0 POC Glucose 251 H 164 H DS: Provider Date of admission: 06/19/17 20:19 Primary care physician: Bob Lama MD Attending physician on admission: Summer Murdock MD Consults: 06/19/17 20:19 Consult to Physician [CONS] Routine Comment: pericardial effusion Consulting Provider: Js Dooley 06/20/17 14:23 Consult to Physician [CONS] Routine Comment: 3 weeks post trauma,?dissection Consulting Provider: Carlos Eason Consulting Provider Notified: Yes Discharging clinician: Paul Rivera MD
--- NOTE | 2017-06-21 17:28 | Cardiology Progress Note ---
Cecil Flor Lesley, SAMUEL, am scribing for, and in the presence of, Es Astudillo NP 17:27. Assessment and Plan - Time spent with patient Time spent with patient: Greater than 30 minutes (Record review, assessment, and documentation) (1) Pericardial effusion Status: Chronic Assessment and plan: SEE PLAN LISTED BELOW (2) HTN (hypertension) Status: Chronic Assessment and plan: SEE PLAN LISTED BELOW Qualifiers: Hypertension type: essential hypertension Qualified Code(s): I10 - Essential (primary) hypertension (3) Ischemic cardiomyopathy Status: Chronic Assessment and plan: SEE PLAN LISTED BELOW (4) CAD (coronary artery disease) Status: Chronic Assessment and plan: SEE PLAN LISTED BELOW Cardiology - PN: Subj Interval history: DENTAL BILLER: Dr. Kirkpatrick SUMMARY: Ms. Pickens is a 62 WF, followed by Dr. Kirkpatrick. History of CAD, status post CABG by Dr. Mancera. She had a lawnmower accident a month ago, with chest injuries, and was recently seen by Dr. Kirkpatrick, echo showed ejection fraction of 50%, inferior WMA, minimal pericardial effusion. Holter showed 4% PVC burden, with mildly symptomatic nonsustained VT's, diabetes mellitus T2, hypertension, with markedly elevated blood pressure on admission, hyperlipidemia, prior cholecystectomy, significant abdominal atherosclerosis, affecting splenic arteries. LFTs were unremarkable, lipase was borderline high, amylase normal. Chest and abdominal CT, she had hepatomegaly, without obvious GI pathology. Echocardiogram repeated during admission and revealed posterior dyskinesis, small posterior pericardial effusion, preserved ejection fraction 50%, normal pulmonary pressure. 06/21/17: The patient is sitting in the chair, no complaints this morning. Vital signs have remained stable, continuous telemetry monitoring reveals SR. Pericardial effusion is small and requires no further work up. IMPRESSION/PLAN: 1. MILD ICM - elevated biomarkers, PVCs/NSVT. This is not AMI. Needs ischemic reevaluation once GI pathology evaluated. This can be done outpatient. 2. PERICARDIAL EFFUSION - small, no further evaluation required at this time. 3. HYPERTENSION - continue beta myrna, ARB. 4. CAD - continue ASA, Crestor, betablocker, Nifedipine, Imdur. Exam (Progress Note) - Constitutional Vitals: Period Temp Pulse Resp BP Sys/Handy Pulse Ox Last 24 Hr 97 F-99 F 67-86 18-20 106-155/56-74 90-98 Exam: General: [Appears well with no apparent distress.] [Pleasant and cooperative. ] [Appears comfortable.] HEENT: [PERRL, normocephalic, atraumatic]. [Mucous membranes moist.] [No jaundice noted.] [Conjunctiva moist and clear, sclerae anicteric.] Neck: [No JVD/HJR, no thyromegaly or lymphadenopathy noted.] [ No carotid bruit appreciated.] Cardiac: [Regular rate and rhythm.] [No murmur rub or gallop.] [ Lungs: [Clear to auscultation without accessory muscle use to assist the respiratory pattern.] [No oxygen in use.] Abdomen: Soft, bowel sounds normoactive. Nontender and nondistended. No abdominal bruit or thrill noted. No masses noted. Musculoskeletal: No fluid collection. Full range of motion is noted. Extremities: No clubbing, cyanosis noted. No edema noted. Upper extremity pulses 2+. Lower extremity pulses 2+. Capillary refill less than 3 seconds. Skin: Warm and dry. No unusual lesions or rashes. No skin breakdown appreciated. Neuro: Awake, alert and oriented 3. Moves all extremities well without hemiparesis or paralysis. No essential tremor is appreciated. Result/EKG - Labs CBC & BMP: 06/21/17 04:32 06/20/17 04:18 Lab Results: I have reviewed the past 24 hour labs Labs: Laboratory Results - last 24 hr 06/20/17 06/20/17 06/21/17 16:09 20:35 04:32 WBC 9.0 RBC 4.30 Hgb 11.9 L Hct 35.8 MCV 83.3 L MCH 28 MCHC 33.2 RDW 14.1 Plt Count 190 MPV 12.7 H Neut % (Auto) 41.4 Lymph % (Auto) 44.5 [place] % (Auto) 9.9 Eos % (Auto) 2.7 Baso % (Auto) 0.9 H Neut # (Auto) 3.8 Lymph # (Auto) 4.0 [place] # (Auto) 0.9 H Eos # (Auto) 0.2 Baso # (Auto) 0.1 Immature Gran % 0.6 Nucleated RBC % 0.0 Immature Gran # 0.05 Nucleated RBCs # 0.00 Immature Plt Fraction 0.0 POC Glucose 164 H 251 H 06/21/17 06/21/17 08:12 11:39 WBC RBC Hgb Hct MCV MCH MCHC RDW Plt Count MPV Neut % (Auto) Lymph % (Auto) [place] % (Auto) Eos % (Auto) Baso % (Auto) Neut # (Auto) Lymph # (Auto) [place] # (Auto) Eos # (Auto) Baso # (Auto) Immature Gran % Nucleated RBC % Immature Gran # Nucleated RBCs # Immature Plt Fraction POC Glucose 144 H 249 H - EKG EKG results: interpreted by me, sinus rhythm Specialty Discharge - Follow Up or Referrals Follow up with: Lilian Kirkpatrick DO [Physician] - 1 Month (cardiolyte stress test 1-2 weeks at [facility] RE: chest pain. F/U Dr. Kirkpatrick 1 month) Wilda Flor Bonnie E, NP, personally performed the services described in this documentation, ascribed by Su Jacob NP in my presence, and it is both accurate and complete .
== END 2017-06-21 17:16 | disposition home or self-care (01) | DRG 316 ==
LOC: N.ED 18:30 → SUATTDRO 20:19 → N.EDINP 20:19 → N.TELEN 20:49
PROVIDERS: ADMIT Family Medicine; ATTEND Internal Medicine